=== PATIENT | male | born 1940 | race Caucasian/White ===

== ENCOUNTER 2024-12-23 07:48 | Inpatient (IN) | payer MEDICARE, OTHER ==
[~2024-12-23] VITALS: Ht 177.8 cm; Wt 56.0 kg
[2024-12-23] VITALS (16 sets, daily range): BP systolic 94–172; BP diastolic 52–107; PULSE 78–93; RESP 15–26; TEMP 98.2–99.3; O2SAT 92–100
[~2024-12-23 07:48] MED LIST: ALLO-45 PO; BIMA2.5D4 OS; CARV12 PO; CHOL100018 PO; CLON0.1T2 PO; CYAN250010 PO; DORZ10DR10 OS; FENO48TA12 PO; FERR-72 PO; FISH1CAP27 PO; FLUNNS NASAL; FURO40TA6 PO; LEVO125 PO; LISI-894 PO; MULT-603 PO; NIFE60TA85 PO; NITR0.4T52 SL; RANI150T7 PO; ROSU10TA98 PO; SITA1TAB6 PO
[2024-12-23] MEDS: FUROSEMIDE 40 MG/4 ML VIAL IVP ONE (08:15)
[2024-12-23] MEDS: SODIUM CHLORIDE 0.9% 250 ML IV ONE (08:15)
[2024-12-23 08:26] LABS: PLATELET COUNT (AUTO) 288 K/uL (150-450); RED BLOOD CELL COUNT(AUTO) 2.78 MIL/uL (4.50-5.90); RED CELL DISTRIBUTION WIDTH 17.8 % (11.5-14.5); WHITE BLOOD COUNT (AUTO) 9.7 K/uL (4.5-11.0)
[2024-12-23 08:27] LABS: CALCIUM, TOTAL 8.0 mg/dL (8.8-10.5); CREATININE 3.71 mg/dL (0.60-1.30); GLOMERULAR FILTR. RATE CALC 16 mL/min (>60); GLUCOSE,RANDOM 164 mg/dL (70-110); SODIUM SERUM 136 mmol/L (136-145); UREA NITROGEN, BLOOD 43 mg/dL (7-18)
[2024-12-23 08:35] LABS: CREATINE KINASE, TOTAL ONLY 40.0 U/L (39-308)
[2024-12-23 08:39] LABS: LACTIC ACID 1.8 mmol/L (0.4-2.0)
[2024-12-23 08:40] LABS: TROPONIN I-HIGH SENSITIVITY 481 ng/L (<76)
[2024-12-23] MEDS: CefTRIAXone 1 GM/DEXTROSE 50 ML IV ONE (09:09)
[2024-12-23 09:40] LABS: TROPONIN I-HIGH SENSITIVITY 482 ng/L (<76)
[2024-12-23 09:48] LABS: APPEARANCE,URINE HAZY (CLEAR); GLUCOSE, URINE (UA) NEGATIVE (NEGATIVE); LEUKOCYTE ESTERASE ,URINE MODERATE (NEGATIVE); NITRATE,URINE NEGATIVE (NEGATIVE); OCCULT BLOOD,URINE SMALL (NEGATIVE); SPECIFIC GRAVITIY, URINE 1.015 (1.003-1.030)
[2024-12-23 09:58] LABS: SQUAMOUS EPITHELIAL CELL,UR Few /LPF (None Seen); YEAST,URINE Moderate /HPF (None Seen)
[2024-12-23] MEDS ORDERED: ONDANSETRON HCL 4 MG/2 ML VIAL IVP PRN (10:00)
[2024-12-23] MEDS ORDERED: DEXTROSE 50%-WATER 25 GM/50 ML SYRINGE IVP PRN (10:00)
[2024-12-23] MEDS ORDERED: BISACODYL 10 MG RECTAL RECTAL SUPPOSITORY PR PRN (10:00)
[2024-12-23 10:12] LABS: ABG BASE EXCESS 2.8 mmol/L (-2.0-3.0); ABG CARBOXYHEMOGLOBIN 0.4 % (0.5-1.5); ABG HCO3 26.6 mmol/L (21.0-28.0); ABG METHEMOGLOBIN 1.2 % (0.0-1.5); ABG OXYGEN CONTENT 12.3 mL/dL (15.0-23.0); ABG OXYGEN SATURATION 99.0 % (94.0-98.0); ABG OXYHEMOGLOBIN 97.4 % (94.0-98.0); ABG PCO2 47 mmHg (32.0-48.0); ABG PH 7.390 (7.350-7.450); ABG TOTAL HEMOGLOBIN 8.8 G/dL (13.5-17.5); FRACTIONATED INSPIRED OXYGEN 50.0 % (21-100.0); PO2, ARTERIAL BG 128.1 mmHg (83.0-108.0); SITE, BLOOD GAS RT RADIAL; SOURCE, BLOOD GAS ARTERIAL; TEMPERATURE, FAHRENHEIT, BG 98.7 FAHREN (96.0-98.6)
[2024-12-23 10:13] LABS: ABG A-A DIFF O2 175.5 mmHg (10-20.0); ALLEN TEST, BLOOD GAS Positive; O2 DEVICE,BLOOD GAS BIPAP (ROOM AIR); PATIENT RATE, BG 19.0 min.; PRESSURE SUPPORT, BG 7 cm H2O; SET RATE, BG 18.0 min.; SPONTANEOUS VT, BG 330 ml
[2024-12-23 10:14] LABS: INSPIRATORY TIME, BG 0.9 SEC
[2024-12-23] MEDS: VANCOMYCIN 1.5 GM/WATER(PEG) 300 ML IV ONE (10:33)
[2024-12-23] MEDS ORDERED: HEPARIN SODIUM,PORCINE 1,000 UNITS/ML VIAL ONE (12:00)
[2024-12-23] MEDS: HEPARIN SODIUM,PORCINE 5,000 UNITS/ML VIAL SQ SCH (16:00)
[2024-12-23] MEDS: HEPARIN SODIUM,PORCINE 1,000 UNITS/ML VIAL IVCATH ONE ×2 (16:22)
[2024-12-23] MEDS: PIPERACILLIN SODIUM/TAZOBACTAM 2.25 GM in DEXTROSE 5%-WATER 50 ML IV SCH (16:34)
[2024-12-23] MEDS ORDERED: SODIUM CHLORIDE 0.9% 250 ML IV ONE (21:28)
[2024-12-23] MEDS: DOCUSATE SODIUM 100 MG CAPSULE PO SCH (21:41)
[2024-12-23] MEDS: MELATONIN 3 MG TABLET PO PRN (21:41)
[2024-12-23] MEDS: CHLORHEXIDINE GLUCONATE 2% TOWELETTE [2'S/6'S] TP SCH (23:05)
[2024-12-23] MEDS: ACETAMINOPHEN 325 MG TABLET PO PRN (23:20)
[2024-12-24] VITALS (7 sets, daily range): BP systolic 112–129; BP diastolic 47–89; PULSE 76–80; RESP 18–20; TEMP 97.9–99.3; O2SAT 98–100
[2024-12-24 04:16] LABS: GLUCOMETER DEV NAME(LOC) 5S.1E; GLUCOSE,POINT OF CARE 90 MG/DL (70-110)
[2024-12-24 07:12] LABS: PLATELET COUNT (AUTO) 265 K/uL (150-450); RED BLOOD CELL COUNT(AUTO) 2.76 MIL/uL (4.50-5.90); RED CELL DISTRIBUTION WIDTH 18.4 % (11.5-14.5); WHITE BLOOD COUNT (AUTO) 7.6 K/uL (4.5-11.0)
[2024-12-24 07:27] LABS: CALCIUM, TOTAL 8.5 mg/dL (8.8-10.5); CREATININE 2.93 mg/dL (0.60-1.30); GLOMERULAR FILTR. RATE CALC 21.0 mL/min (>60); GLUCOSE,RANDOM 76.0 mg/dL (70-110); SODIUM SERUM 140.0 mmol/L (136-145); UREA NITROGEN, BLOOD 30.0 mg/dL (7-18)
[2024-12-24 07:39] LABS: TROPONIN I-HIGH SENSITIVITY 507 ng/L (<76)
[2024-12-24] MEDS ORDERED: VANCOMYCIN 1GM/WATER(PEG/NADA) 200 ML IV PRN (08:30)
[2024-12-24] MEDS: FAMOTIDINE 20 MG TABLET PO SCH (08:44)
[2024-12-24 09:56] LABS: INFLUENZA A-RTPCR,COMBO NEGATIVE (NEGATIVE); INFLUENZA B-RTPCR,COMBO NEGATIVE (NEGATIVE); RESPIRATORY SYNCYTIAL VRS-PCR NEGATIVE (NEGATIVE); SARS COVID19 RTPCR, COMBO NEGATIVE (NEGATIVE)
[2024-12-24 10:21] LABS: GLUCOMETER DEV NAME(LOC) 5S.1E; GLUCOSE,POINT OF CARE 75 MG/DL (70-110)
[2024-12-24] MEDS: LEVOTHYROXINE SODIUM 125 MCG TABLET PO SCH (12:08)
[2024-12-24] MEDS: PIPERACILLIN SODIUM/TAZOBACTAM 2.25 GM in DEXTROSE 5%-WATER 50 ML IV SCH (13:58)
[2024-12-24 14:11] LABS: GLUCOMETER DEV NAME(LOC) 5S.1E; GLUCOSE,POINT OF CARE 120 MG/DL (70-110)
[2024-12-24] MEDS: INSULIN LISPRO 100 UNITS/ML SQ PRN (21:38)
[2024-12-24] MEDS ORDERED: 0.9% SODIUM CHLORIDE 5 ML NEB SOLUTION NEB ONE (22:42)
[2024-12-24 23:01] LABS: GLUCOMETER DEV NAME(LOC) 5N.2C; GLUCOSE,POINT OF CARE 126 MG/DL (70-110)
[2024-12-24 23:01] LABS: GLUCOMETER DEV NAME(LOC) 5N.2C; GLUCOSE,POINT OF CARE 168 MG/DL (70-110)
[2024-12-25 03:47] VITALS: BP 103/52; PULSE 78; RESP 18; TEMP 98.2; O2SAT 100
[2024-12-25 06:46] LABS: PLATELET COUNT (AUTO) 300 K/uL (150-450); RED BLOOD CELL COUNT(AUTO) 2.49 MIL/uL (4.50-5.90); RED CELL DISTRIBUTION WIDTH 18.1 % (11.5-14.5); WHITE BLOOD COUNT (AUTO) 5.5 K/uL (4.5-11.0)
[2024-12-25 06:57] LABS: CALCIUM, TOTAL 8.1 mg/dL (8.8-10.5); CREATININE 3.66 mg/dL (0.60-1.30); GLOMERULAR FILTR. RATE CALC 16.0 mL/min (>60); GLUCOSE,RANDOM 92.0 mg/dL (70-110); SODIUM SERUM 141.0 mmol/L (136-145); UREA NITROGEN, BLOOD 42.0 mg/dL (7-18)
[2024-12-25 07:32] VITALS: BP 118/69; PULSE 79; RESP 18; TEMP 98.2; O2SAT 100
[2024-12-25] MEDS: VANCOMYCIN 1.25 GM/WATER(PEG) 250 ML IV ONE (08:47)
[2024-12-25 09:11] LABS: GLUCOMETER DEV NAME(LOC) 5S.1E; GLUCOSE,POINT OF CARE 86 MG/DL (70-110)
[2024-12-25 11:32] VITALS: BP 112/65; PULSE 80; RESP 18; TEMP 97.9; O2SAT 99
[2024-12-25] MEDS: PIPERACILLIN SODIUM/TAZOBACTAM 2.25 GM in DEXTROSE 5%-WATER 50 ML IV SCH (11:57)
[2024-12-25 12:56] LABS: GLUCOMETER DEV NAME(LOC) 5S.1E; GLUCOSE,POINT OF CARE 130 MG/DL (70-110)
[2024-12-25 15:26] VITALS: BP 121/62; PULSE 67; RESP 18; TEMP 97.9; O2SAT 98
[2024-12-25 20:18] VITALS: BP 128/65; PULSE 79; RESP 19; TEMP 98.4; O2SAT 100
[2024-12-25] MEDS ORDERED: SODIUM CHLORIDE 0.9% 250 ML IV ONE (20:27)
[2024-12-25 21:26] LABS: GLUCOMETER DEV NAME(LOC) 5S.1E; GLUCOSE,POINT OF CARE 110 MG/DL (70-110)
[2024-12-25 21:26] LABS: GLUCOMETER DEV NAME(LOC) 5N.2C; GLUCOSE,POINT OF CARE 139 MG/DL (70-110)
[2024-12-25 23:28] VITALS: BP 111/69; PULSE 82; RESP 18; TEMP 98.8; O2SAT 100
[2024-12-26] VITALS (14 sets, daily range): BP systolic 121–158; BP diastolic 1–83; PULSE 60–89; RESP 18–19; TEMP 97.9–98.4; O2SAT 96–100
[2024-12-26 06:37] LABS: PLATELET COUNT (AUTO) 317 K/uL (150-450); RED BLOOD CELL COUNT(AUTO) 2.52 MIL/uL (4.50-5.90); RED CELL DISTRIBUTION WIDTH 17.7 % (11.5-14.5); WHITE BLOOD COUNT (AUTO) 5.2 K/uL (4.5-11.0)
[2024-12-26 06:50] LABS: CREATININE 4.0 mg/dL (0.60-1.30); GLUCOSE,RANDOM 124.0 mg/dL (70-110); SODIUM SERUM 140.0 mmol/L (136-145); UREA NITROGEN, BLOOD 53.0 mg/dL (7-18)
[2024-12-26 06:51] LABS: CALCIUM, TOTAL 8.1 mg/dL (8.8-10.5); GLOMERULAR FILTR. RATE CALC 14.0 mL/min (>60)
[2024-12-26] MEDS: EPOETIN ALFA 10,000 UNITS/ML VIAL SQ SCH (10:01)
[2024-12-26] MEDS ORDERED: SODIUM CHLORIDE 0.9% 1,000 ML ONE (10:43)
[2024-12-26] MEDS ORDERED: HEPARIN SODIUM,PORCINE 1,000 UNITS/ML VIAL ONE (11:04)
[2024-12-26] MEDS: HEPARIN SODIUM,PORCINE 1,000 UNITS/ML VIAL IVCATH ONE ×2 (16:21)
[2024-12-27] VITALS (13 sets, daily range): BP systolic 113–140; BP diastolic 8–75; PULSE 60–92; RESP 18; TEMP 97.7–98.8; O2SAT 98–100
[2024-12-27 01:07] LABS: HEPATITIS C AB (EIA) Non Reactive (Non Reactive)
[2024-12-27 04:11] LABS: GLUCOMETER DEV NAME(LOC) 5S.1E; GLUCOSE,POINT OF CARE 100 MG/DL (70-110)
[2024-12-27 04:11] LABS: GLUCOMETER DEV NAME(LOC) 5S.1E; GLUCOSE,POINT OF CARE 128 MG/DL (70-110)
[2024-12-27 04:12] LABS: GLUCOMETER DEV NAME(LOC) 5N.2C; GLUCOSE,POINT OF CARE 118 MG/DL (70-110)
[2024-12-27 04:12] LABS: GLUCOMETER DEV NAME(LOC) 5S.1E; GLUCOSE,POINT OF CARE 83 MG/DL (70-110)
[2024-12-27] MEDS ORDERED: SODIUM CHLORIDE 0.9% 2,000 ML ONE (06:47)
[2024-12-27 06:59] LABS: CALCIUM, TOTAL 7.8 mg/dL (8.8-10.5); CREATININE 2.64 mg/dL (0.60-1.30); GLOMERULAR FILTR. RATE CALC 23.0 mL/min (>60); GLUCOSE,RANDOM 88.0 mg/dL (70-110); SODIUM SERUM 138.0 mmol/L (136-145); UREA NITROGEN, BLOOD 31.0 mg/dL (7-18)
[2024-12-27 11:54] LABS: SPECIMENTYPE,BODY FLUID PLV
[2024-12-27] MEDS ORDERED: HEPARIN SODIUM,PORCINE 1,000 UNITS/ML VIAL ONE (12:00)
[2024-12-27] MEDS: HEPARIN SODIUM,PORCINE 1,000 UNITS/ML VIAL IVCATH ONE ×2 (12:08)
[2024-12-27 12:31] LABS: GLUCOMETER DEV NAME(LOC) 5S.1E; GLUCOSE,POINT OF CARE 93 MG/DL (70-110)
[2024-12-27 12:31] LABS: GLUCOMETER DEV NAME(LOC) 5S.1E; GLUCOSE,POINT OF CARE 99 MG/DL (70-110)
[2024-12-27] MEDS: VANCOMYCIN 1GM/WATER(PEG/NADA) 200 ML IV ONE (15:40)
[2024-12-27 17:34] LABS: APPEARANCE,SPUN,BODY FLUID CLEAR (CLEAR); APPEARANCE,UNSPUN,BODY FLUID TURBID (CLEAR); BODY FLUID RBC 1414.0 /cu. mm.; COLOR,BODY FLUID DARK YELLOW (LT YELLOW); LYMPHOCYTES,BODY FLUID 85 %; NEUTROPHILS,BODY FLUID 7 %; TOTAL VOLUME,BODY FLUID 750 mL
[2024-12-27 17:35] LABS: BASOPHILS,BODY FLUID 0 %; EOSINOPHILS,BF (ANAL) 0 %; MONOCYTES,BODY FLUID 10 %
[2024-12-27 17:38] LABS: PH, BODY FLUID 9.0; WBC, BODY FLUID 103 /cu. mm.
[2024-12-27 17:43] LABS: OTHER CELLS,BODY FLUID MESOTHELIALS 8
[2024-12-28 00:15] VITALS: BP 127/55; PULSE 79; RESP 18; TEMP 98.1; O2SAT 100
[2024-12-28 04:19] VITALS: BP 128/68; PULSE 77; RESP 17; TEMP 98.1; O2SAT 99
[2024-12-28 07:47] VITALS: BP 132/67; PULSE 82; RESP 18; TEMP 98; O2SAT 98
[2024-12-28 11:28] VITALS: BP 126/64; PULSE 74; RESP 18; TEMP 98; O2SAT 97
[2024-12-28 12:26] LABS: GLUCOMETER DEV NAME(LOC) 5N.2C; GLUCOSE,POINT OF CARE 107 MG/DL (70-110)
[2024-12-28 12:26] LABS: GLUCOMETER DEV NAME(LOC) 5N.2C; GLUCOSE,POINT OF CARE 103 MG/DL (70-110)
[2024-12-28 12:26] LABS: GLUCOMETER DEV NAME(LOC) 5N.2C; GLUCOSE,POINT OF CARE 121 MG/DL (70-110)
[2024-12-28 12:26] LABS: GLUCOMETER DEV NAME(LOC) 5N.2C; GLUCOSE,POINT OF CARE 105 MG/DL (70-110)
[2024-12-28] MEDS ORDERED: ALLO-97 PO (13:38)
[2024-12-28] MEDS ORDERED: AMLO-257 PO (13:40)
[2024-12-28] MEDS ORDERED: DORZ10DR10 OS (13:42)
[2024-12-28] MEDS ORDERED: DOCU-385 PO (13:43)
[2024-12-28] MEDS ORDERED: BISA-151 PO (13:45)
[2024-12-28] MEDS ORDERED: APIX2.5T PO (13:47)
[2024-12-28] MEDS ORDERED: FINE10TA PO (13:49)
[2024-12-28] MEDS ORDERED: IPRA4AER IH (13:51)
[2024-12-28] MEDS ORDERED: MELA5TAB40 PO (13:53)
[2024-12-28] MEDS ORDERED: FOLI1TAB85 PO (13:54)
[2024-12-28] MEDS ORDERED: OMEP-148 PO (13:58)
[2024-12-28] MEDS ORDERED: VIT1CAPS47 PO (13:59)
[2024-12-28] MEDS ORDERED: ACET650S24 PR (14:04)
[2024-12-28 14:07] LABS: GLUCOSE, BODY FLUID,REF 108.0 mg/dL; LDH,BODY FLUID,REF 93.0 IU/L; TOTAL PROTEIN,BODY FLUID,REF 2.5 g/dL
[2024-12-28] MEDS ORDERED: CHOL25TA4 PO (14:13)
[2024-12-28] MEDS ORDERED: FLUC100T68 PO (14:15)
[2024-12-28] MEDS ORDERED: ACET-784 PO (14:21)
[2024-12-28] MEDS ORDERED: NYST15PO3 TP (14:25)
[2024-12-28] MEDS ORDERED: NYST30CR9 TP (14:27)
[2024-12-28] MEDS ORDERED: BISA10SU11 PR (14:53)
[2024-12-28] MEDS ORDERED: FURO20TA5 PO (14:59)
[2024-12-28 15:50] VITALS: BP 106/50; PULSE 80; RESP 18; TEMP 97.7; O2SAT 96
== END 2024-12-28 17:15 | DRG 193 ==
LOC: EMS 07:48 → EDH 09:49 → 5S 18:10
PROVIDERS: ADMIT Internal Medicine; ATTEND Internal Medicine
PROC: 5A09357 Assistance with Respiratory Ventilation, Less than 24 Consecutive Hours, Continuous Positive Airway Pressure (ICD-10-PCS; principal; 2024-12-23)
PROC: 5A1D70Z Performance of Urinary Filtration, Intermittent, Less than 6 Hours Per Day (ICD-10-PCS; 2024-12-23)
PROC: 5A1D70Z Performance of Urinary Filtration, Intermittent, Less than 6 Hours Per Day (ICD-10-PCS; 2024-12-26)
PROC: 5A1D70Z Performance of Urinary Filtration, Intermittent, Less than 6 Hours Per Day (ICD-10-PCS; 2024-12-27)
PROC: 0W993ZZ Drainage of Right Pleural Cavity, Percutaneous Approach (ICD-10-PCS; 2024-12-27)
DX: J18.9 Pneumonia, unspecified organism (principal); G92.8 Other toxic encephalopathy; J96.01 Acute respiratory failure with hypoxia; N17.0 Acute kidney failure with tubular necrosis; N18.6 End stage renal disease; R53.2 Functional quadriplegia; I50.23 Acute on chronic systolic (congestive) heart failure; I13.2 Hypertensive heart and chronic kidney disease with heart failure and with stage 5 chronic kidney disease, or end stage renal disease; I47.20 Ventricular tachycardia, unspecified; N13.30 Unspecified hydronephrosis; I31.39 Other pericardial effusion (noninflammatory); I42.9 Cardiomyopathy, unspecified; D63.1 Anemia in chronic kidney disease; E03.9 Hypothyroidism, unspecified; E11.22 Type 2 diabetes mellitus with diabetic chronic kidney disease; I25.10 Atherosclerotic heart disease of native coronary artery without angina pectoris; Z20.822 Contact with and (suspected) exposure to COVID-19; Z95.0 Presence of cardiac pacemaker; Z79.84 Long term (current) use of oral hypoglycemic drugs; Z79.899 Other long term (current) drug therapy; Z85.46 Personal history of malignant neoplasm of prostate; Z99.2 Dependence on renal dialysis
CPT/HCPCS: 32555; 51702; 71045; 71250; 72192; 74150; 76770; 76942; 80048; 80202; 81001; 82465; 82550; 82805; 82945; 82962; 83605; 83615; 83735; 83880; 83986; 84145; 84157; 84439; 84443; 84460; 84484; 85025; 85610; 85730; 86707; 86709; 86803; 87015; 87040; 87075; 87081; 87086; 87101; 87205; 87206; 87340; 87350; 87517; 87637; 88108; 88305; 89051; 90935; 92610; 93005; 93306; 93970; 94660; 96361; 96365; 96375; 97163; 97167; 97530; 97535; 99285; G0378; J0696; J0885; J1644; J1938; J2543; J7030; J7050; J7060; 36415-L1; 36415-TC; 87070

== ENCOUNTER 2025-02-01 05:05 | Inpatient (IN) | payer MEDICARE, OTHER ==
[~2025-02-01] VITALS: Ht 177.8 cm; Wt 96.0 kg
[2025-02-01] VITALS (19 sets, daily range): BP systolic 83–113; BP diastolic 42–66; PULSE 72–117; RESP 10–28; TEMP 95.6–98.8; O2SAT 96–100
[~2025-02-01 05:05] MED LIST changes: +ACET-784 PO; -ALLO-45 PO; +ALLO-97 PO; +AMLO-257 PO; +APIX2.5T PO; +BISA10SU11 PR; -CARV12 PO; -CHOL100018 PO; +CHOL25TA4 PO; -CLON0.1T2 PO; -CYAN250010 PO; +DOCU-385 PO; +ETHY1MED2 NASAL; -FENO48TA12 PO; -FERR-72 PO; +FINE10TA PO; -FISH1CAP27 PO; +FLUN25H NASAL; -FLUNNS NASAL; +FOLI0.8T54 PO; +FURO20TA5 PO; -FURO40TA6 PO; +IPRA3AMP24 NEB; -LISI-894 PO; +MELA5TAB40 PO; +METO25XL PO; -MULT-603 PO; -NIFE60TA85 PO; -NITR0.4T52 SL; +NYST30CR9 TP; +OMEP-148 PO; -RANI150T7 PO; -SITA1TAB6 PO; +VIT1CAPS47 PO; +XALA2.5OS OU; +[UNRECOGNIZED DRUG - CODE] IV; +[UNRECOGNIZED DRUG - CODE] SQ
[2025-02-01 05:40] LABS: GLUCOMETER DEV NAME(LOC) ER.7; GLUCOSE,POINT OF CARE 154 MG/DL (70-110)
[2025-02-01 05:44] LABS: PLATELET COUNT (AUTO) 320 K/uL (150-450); RED BLOOD CELL COUNT(AUTO) 3.62 MIL/uL (4.50-5.90); RED CELL DISTRIBUTION WIDTH 17.8 % (11.5-14.5); WHITE BLOOD COUNT (AUTO) 12.3 K/uL (4.5-11.0)
[2025-02-01] MEDS: NOREPINEPHRINE 8 MG/0.9 % NACL 250 ML IV PRN (05:48)
[2025-02-01] MEDS: PROPOFOL 1000 MG/ISO-OSM 100 ML IV PRN ×2 (05:48→18:27)
[2025-02-01] MEDS: FentaNYL CIT 1000MCG/0.9% NACL 100 ML IV PRN ×2 (05:49→23:50)
[2025-02-01 05:51] LABS: CALCIUM, TOTAL 8.6 mg/dL (8.8-10.5); CREATININE 2.71 mg/dL (0.60-1.30); GLOMERULAR FILTR. RATE CALC 23 mL/min (>60); GLUCOSE,RANDOM 170 mg/dL (70-110); SODIUM SERUM 135 mmol/L (136-145); UREA NITROGEN, BLOOD 26 mg/dL (7-18)
[2025-02-01] MEDS ORDERED: CALCIUM CHLORIDE 100 MG/ML 10 ML SYRINGE IVP ONE (05:51)
[2025-02-01] MEDS ORDERED: SUCCINYLCHOLINE CHLORIDE 20 MG/ML 10 ML VIAL ONE (05:52)
[2025-02-01 06:01] LABS: LACTIC ACID 0.9 mmol/L (0.4-2.0)
[2025-02-01 06:03] LABS: TROPONIN I-HIGH SENSITIVITY 408 ng/L (<76)
[2025-02-01 06:20] LABS: APPEARANCE,URINE TURBID (CLEAR); GLUCOSE, URINE (UA) NEGATIVE (NEGATIVE); LEUKOCYTE ESTERASE ,URINE LARGE (NEGATIVE); NITRATE,URINE NEGATIVE (NEGATIVE); OCCULT BLOOD,URINE SMALL (NEGATIVE); SPECIFIC GRAVITIY, URINE 1.010 (1.003-1.030)
[2025-02-01 06:47] LABS: SULFOSALICYLIC ACID,URINE 2+ (Negative)
[2025-02-01 07:20] LABS: ABG A-A DIFF O2 315.5 mmHg (10-20.0); ABG BASE EXCESS 2.7 mmol/L (-2.0-3.0); ABG CARBOXYHEMOGLOBIN 1.0 % (0.5-1.5); ABG HCO3 26.6 mmol/L (21.0-28.0); ABG METHEMOGLOBIN 0.9 % (0.0-1.5); ABG OXYGEN CONTENT 16.8 mL/dL (15.0-23.0); ABG OXYGEN SATURATION 99.9 % (94.0-98.0); ABG OXYHEMOGLOBIN 98.0 % (94.0-98.0); ABG PCO2 42 mmHg (32.0-48.0); ABG PH 7.429 (7.350-7.450); ABG TOTAL HEMOGLOBIN 11.9 G/dL (13.5-17.5); ALLEN TEST, BLOOD GAS Positive; FRACTIONATED INSPIRED OXYGEN 75.0 % (21-100.0); O2 DEVICE,BLOOD GAS VENTILATOR (ROOM AIR); PATIENT RATE, BG 20.0 min.; PEEP,BG 5 cm H2O; PO2, ARTERIAL BG 177.6 mmHg (83.0-108.0); SET RATE, BG 20.0 min.; SITE, BLOOD GAS LFT RADIAL; SOURCE, BLOOD GAS ARTERIAL; TEMPERATURE, FAHRENHEIT, BG 96.1 FAHREN (96.0-98.6); VT, ABG 500 ml
[2025-02-01] MEDS ORDERED: MISC MED-CONVERTED FROM AMBULATORY (Ipratropium/Albuterol Sulfate (Duoneb 2.5-0.5 Mg/3 Ml NEB PRN (07:45)
[2025-02-01] MEDS ORDERED: 0.9% SODIUM CHLORIDE 10 ML SYRINGE IVP PRN (07:45)
[2025-02-01] MEDS ORDERED: BISACODYL 10 MG RECTAL RECTAL SUPPOSITORY PR PRN (07:45)
[2025-02-01] MEDS ORDERED: IPRATROPIUM BROMIDE 0.5 MG/2.5 ML NEB SOLUTION NEB PRN (08:00)
[2025-02-01] MEDS ORDERED: ALBUTEROL SULFATE 2.5 MG/0.5 ML NEB SOLUTION NEB PRN (08:00)
[2025-02-01 08:37] LABS: CALCIUM, TOTAL 9.5 mg/dL (8.8-10.5); CREATININE 2.76 mg/dL (0.60-1.30); GLOMERULAR FILTR. RATE CALC 22.0 mL/min (>60); GLUCOSE,RANDOM 156.0 mg/dL (70-110); SODIUM SERUM 135.0 mmol/L (136-145); UREA NITROGEN, BLOOD 27.0 mg/dL (7-18)
[2025-02-01] MEDS: CefTRIAXone 1 GM/DEXTROSE 50 ML IV SCH (08:37)
[2025-02-01 08:39] LABS: TROPONIN I-HIGH SENSITIVITY 465 ng/L (<76)
[2025-02-01] MEDS: SODIUM CHLORIDE 0.9% 250 ML IV ONE (08:41)
[2025-02-01 08:42] LABS: ASPARTATE AMINOTRANSFERASE 24.0 U/L (15-37); LACTATE DEHYDROGENASE 237.0 U/L (85-227); TOTAL PROTEIN, SERUM 7.4 g/dL (6.4-8.2)
[2025-02-01] MEDS: NYSTATIN 30 GM CREAM TP SCH (09:00)
[2025-02-01] MEDS: DORZOLAMIDE/TIMOLOL 2-0.5% [22.3-6.8MG/ML] 10 ML OPHTHALMIC SOLUTION OS SCH (09:00)
[2025-02-01] MEDS: OMEPRAZOLE 20 MG CAPSULE PO SCH (09:44)
[2025-02-01] MEDS: EPOETIN ALFA 10,000 UNITS/ML VIAL SQ SCH (09:44)
[2025-02-01] MEDS: ASPIRIN 81 MG CHEWABLE TABLET PO ONE (09:44)
[2025-02-01] MEDS: METOPROLOL SUCCINATE 25 MG ER TABLET PO SCH (09:44)
[2025-02-01] MEDS: DOXYCYCLINE HYCLATE 100 MG in DEXTROSE 5%-WATER 100 ML IV SCH (09:46)
[2025-02-01] MEDS ORDERED: ETOMIDATE 2 MG/ML 10 ML VIAL ONE (12:00)
[2025-02-01] MEDS ORDERED: HEPARIN SODIUM,PORCINE 1,000 UNITS/ML VIAL ONE (12:00)
[2025-02-01] MEDS ORDERED: LIDOCAINE 2% 6 ML JELLY ONE (12:00)
[2025-02-01 12:09] LABS: TROPONIN I-HIGH SENSITIVITY 435 ng/L (<76)
[2025-02-01] MEDS: PIPERACILLIN SODIUM/TAZOBACTAM 2.25 GM in DEXTROSE 5%-WATER 50 ML IV SCH (13:13)
[2025-02-01] MEDS ORDERED: SODIUM CHLORIDE 0.9% 250 ML IV ONE (13:14)
[2025-02-01 14:15] LABS: GLUCOMETER DEV NAME(LOC) ICU.S7; GLUCOSE,POINT OF CARE 131 MG/DL (70-110)
[2025-02-01 18:16] LABS: GLUCOMETER DEV NAME(LOC) ICU.S7; GLUCOSE,POINT OF CARE 96 MG/DL (70-110)
[2025-02-01 19:02] LABS: TROPONIN I-HIGH SENSITIVITY 414 ng/L (<76)
[2025-02-01] MEDS: BIMATOPROST 0.01% 2.5 ML OPHTHALMIC SOLUTION OS SCH (20:42)
[2025-02-01] MEDS: ROSUVASTATIN CALCIUM 10 MG TABLET PO SCH (21:00)
[2025-02-01] MEDS: ETHYL ALCOHOL 62% ANTISEPTIC NASAL SANITIZER 0.6 ML AMPUL NASAL SCH (21:58)
[2025-02-01] MEDS: CHLORHEXIDINE GLUCONATE 2% TOWELETTE [2'S/6'S] TP SCH (22:38)
[2025-02-02] VITALS (25 sets, daily range): BP systolic 107–147; BP diastolic 39–102; PULSE 64–91; RESP 20–27; TEMP 99.1–100; O2SAT 94–100
[2025-02-02 01:00] LABS: GLUCOMETER DEV NAME(LOC) ICU.S7; GLUCOSE,POINT OF CARE 86 MG/DL (70-110)
[2025-02-02] MEDS: LEVOTHYROXINE SODIUM 125 MCG TABLET PO SCH (05:41)
[2025-02-02 06:16] LABS: PLATELET COUNT (AUTO) 278 K/uL (150-450); RED BLOOD CELL COUNT(AUTO) 3.77 MIL/uL (4.50-5.90); RED CELL DISTRIBUTION WIDTH 18.4 % (11.5-14.5); WHITE BLOOD COUNT (AUTO) 12.7 K/uL (4.5-11.0)
[2025-02-02 06:28] LABS: CALCIUM, TOTAL 8.5 mg/dL (8.8-10.5); CREATININE 2.29 mg/dL (0.60-1.30); GLOMERULAR FILTR. RATE CALC 27.0 mL/min (>60); GLUCOSE,RANDOM 86.0 mg/dL (70-110); SODIUM SERUM 130.0 mmol/L (136-145); UREA NITROGEN, BLOOD 19.0 mg/dL (7-18)
[2025-02-02] MEDS: DEXTROSE 50%-WATER 25 GM/50 ML SYRINGE IVP PRN (06:41)
[2025-02-02 06:45] LABS: PHOSPHORUS 3.2 mg/dL (2.5-4.9)
[2025-02-02] MEDS ORDERED: ONDANSETRON HCL 4 MG/2 ML VIAL IVP PRN (07:00)
[2025-02-02] MEDS ORDERED: VANCOMYCIN HCL 1 GM/D5% WATER 200 ML IV PRN (08:15)
[2025-02-02] MEDS ORDERED: HEPARIN SODIUM,PORCINE 1,000 UNITS/ML 10 ML VIAL ONE (09:05)
[2025-02-02] MEDS: METOPROLOL TARTRATE 25 MG TABLET GT SCH (09:30)
[2025-02-02] MEDS: HEPARIN SODIUM,PORCINE 5,000 UNITS/ML VIAL SQ SCH (09:39)
[2025-02-02] MEDS: PANTOPRAZOLE SODIUM 40 MG/VIAL IVP SCH (09:39)
[2025-02-02] MEDS: VANCOMYCIN 1.25 GM/WATER(PEG) 250 ML IV ONE (09:39)
[2025-02-02] MEDS: DOCUSATE SODIUM 100 MG CAPSULE PO SCH (09:40)
[2025-02-02] MEDS: ASPIRIN 81 MG CHEWABLE TABLET PO SCH (09:46)
[2025-02-02 10:22] LABS: ABG BASE EXCESS 1.1 mmol/L (-2.0-3.0); ABG CARBOXYHEMOGLOBIN 0.6 % (0.5-1.5); ABG HCO3 25.7 mmol/L (21.0-28.0); ABG METHEMOGLOBIN 0.1 % (0.0-1.5); ABG OXYGEN CONTENT 16.1 mL/dL (15.0-23.0); ABG OXYGEN SATURATION 98.8 % (94.0-98.0); ABG OXYHEMOGLOBIN 98.1 % (94.0-98.0); ABG PCO2 35 mmHg (32.0-48.0); ABG PH 7.464 (7.350-7.450); ABG TOTAL HEMOGLOBIN 11.5 G/dL (13.5-17.5); ALLEN TEST, BLOOD GAS Positive; FRACTIONATED INSPIRED OXYGEN 40.0 % (21-100.0); PO2, ARTERIAL BG 121.4 mmHg (83.0-108.0); SITE, BLOOD GAS LFT RADIAL; SOURCE, BLOOD GAS ARTERIAL; TEMPERATURE, FAHRENHEIT, BG 98.9 FAHREN (96.0-98.6)
[2025-02-02 10:23] LABS: ABG A-A DIFF O2 122.9 mmHg (10-20.0); O2 DEVICE,BLOOD GAS VENTILATOR (ROOM AIR); PATIENT RATE, BG 21.0 min.; PEEP,BG 5 cm H2O; SET RATE, BG 20.0 min.; SPONTANEOUS VT, BG 525 ml; VT, ABG 500 ml
[2025-02-02] MEDS ORDERED: HEPARIN SODIUM,PORCINE 1,000 UNITS/ML VIAL IVP ONE (10:55)
[2025-02-02 13:10] LABS: GLUCOMETER DEV NAME(LOC) ICUN.7; GLUCOSE,POINT OF CARE 76 MG/DL (70-110)
[2025-02-02 13:10] LABS: GLUCOMETER DEV NAME(LOC) ICUN.7; GLUCOSE,POINT OF CARE 70 MG/DL (70-110)
[2025-02-02 13:15] LABS: GLUCOMETER DEV NAME(LOC) ICU.S7; GLUCOSE,POINT OF CARE 107 MG/DL (70-110)
[2025-02-02] MEDS: ACETAMINOPHEN 325 MG TABLET PO PRN (17:29)
[2025-02-02] MEDS: NOREPINEPHRINE 8 MG/0.9 % NACL 250 ML IV PRN (17:29)
[2025-02-02] MEDS: *CLINICAL-CEFEPIME DOSING CLINICAL ONE (17:48)
[2025-02-02] MEDS: HEPARIN SODIUM,PORCINE 1,000 UNITS/ML VIAL IVCATH ONE ×2 (20:34→20:35)
[2025-02-02] MEDS: CEFEPIME HCL 1 GM in DEXTROSE 5%-WATER 50 ML IV SCH (21:18)
[2025-02-02] MEDS: DOCUSATE SODIUM 100 MG/10 ML LIQUID UDCUP GT SCH (21:18)
[2025-02-02] MEDS ORDERED: CHLORHEXIDINE GLUCONATE 2% TOWELETTE [2'S/6'S] TP SCH (22:00)
[2025-02-03] VITALS (22 sets, daily range): BP systolic 64–160; BP diastolic 44–76; PULSE 62–95; RESP 13–39; TEMP 98.2–100.3; O2SAT 96–100
[2025-02-03 04:46] LABS: GLUCOMETER DEV NAME(LOC) ICUN.7; GLUCOSE,POINT OF CARE 78 MG/DL (70-110)
[2025-02-03 04:46] LABS: GLUCOMETER DEV NAME(LOC) ICU.S7; GLUCOSE,POINT OF CARE 98 MG/DL (70-110)
[2025-02-03 06:26] LABS: PLATELET COUNT (AUTO) 220 K/uL (150-450); RED BLOOD CELL COUNT(AUTO) 3.50 MIL/uL (4.50-5.90); RED CELL DISTRIBUTION WIDTH 18.8 % (11.5-14.5); WHITE BLOOD COUNT (AUTO) 9.6 K/uL (4.5-11.0)
[2025-02-03 07:37] LABS: CALCIUM, TOTAL 8.9 mg/dL (8.8-10.5); CREATININE 1.87 mg/dL (0.60-1.30); GLOMERULAR FILTR. RATE CALC 35.0 mL/min (>60); GLUCOSE,RANDOM 84.0 mg/dL (70-110); SODIUM SERUM 138.0 mmol/L (136-145); UREA NITROGEN, BLOOD 12.0 mg/dL (7-18)
[2025-02-03 08:56] LABS: GLUCOMETER DEV NAME(LOC) ICU.S7; GLUCOSE,POINT OF CARE 68 MG/DL (70-110)
[2025-02-03 08:56] LABS: GLUCOMETER DEV NAME(LOC) ICUN.7; GLUCOSE,POINT OF CARE 83 MG/DL (70-110)
[2025-02-03 10:13] LABS: SPECIMENTYPE,BODY FLUID PLV
[2025-02-03 11:00] LABS: APPEARANCE,SPUN,BODY FLUID CLEAR (CLEAR); APPEARANCE,UNSPUN,BODY FLUID HAZY (CLEAR); BASOPHILS,BODY FLUID 0 % (1-5); BODY FLUID RBC 118.0 /cu. mm.; COLOR,BODY FLUID YELLOW (LT YELLOW); EOSINOPHILS,BF (ANAL) 0 %; LYMPHOCYTES,BODY FLUID 58 %; MONOCYTES,BODY FLUID 33 %; NEUTROPHILS,BODY FLUID 9 %; TOTAL VOLUME,BODY FLUID 900 mL; WBC, BODY FLUID 1075 /cu. mm.
[2025-02-03 11:01] LABS: PH, BODY FLUID 8.0 (6.8-7.6)
[2025-02-03 11:31] LABS: GLUCOMETER DEV NAME(LOC) ICUN.7; GLUCOSE,POINT OF CARE 92 MG/DL (70-110)
[2025-02-03] MEDS ORDERED: HEPARIN SODIUM,PORCINE 1,000 UNITS/ML VIAL IVP ONE (12:00)
[2025-02-03 15:10] LABS: ABG A-A DIFF O2 59.2 mmHg (10-20.0); ABG BASE EXCESS 2.3 mmol/L (-2.0-3.0); ABG CARBOXYHEMOGLOBIN 0.7 % (0.5-1.5); ABG HCO3 26.2 mmol/L (21.0-28.0); ABG METHEMOGLOBIN 0.1 % (0.0-1.5); ABG OXYGEN CONTENT 16.8 mL/dL (15.0-23.0); ABG OXYGEN SATURATION 97.8 % (94.0-98.0); ABG OXYHEMOGLOBIN 97.0 % (94.0-98.0); ABG PCO2 45 mmHg (32.0-48.0); ABG PH 7.398 (7.350-7.450); ABG TOTAL HEMOGLOBIN 12.2 G/dL (13.5-17.5); ALLEN TEST, BLOOD GAS Positive; FRACTIONATED INSPIRED OXYGEN 30.0 % (21-100.0); PO2, ARTERIAL BG 101.5 mmHg (83.0-108.0); SITE, BLOOD GAS LFT RADIAL; SOURCE, BLOOD GAS ARTERIAL; TEMPERATURE, FAHRENHEIT, BG 99.4 FAHREN (96.0-98.6)
[2025-02-03 15:11] LABS: O2 DEVICE,BLOOD GAS VENTILATOR (ROOM AIR); PATIENT RATE, BG 21.0 min.; PEEP,BG 0 cm H2O; PRESSURE SUPPORT, BG 8 cm H2O; SPONTANEOUS VT, BG 545 ml; VENT MODE, BG SPONTANEOUS (ROOM AIR)
[2025-02-03 17:40] LABS: GLUCOMETER DEV NAME(LOC) ICU.S7; GLUCOSE,POINT OF CARE 99 MG/DL (70-110)
[2025-02-03] MEDS ORDERED: SODIUM CHLORIDE 0.9% 250 ML IV ONE (21:00)
[2025-02-04] VITALS (11 sets, daily range): BP systolic 94–141; BP diastolic 50–74; PULSE 69–86; RESP 14–21; TEMP 99.5–100.4; O2SAT 98–100
[2025-02-04 00:26] LABS: GLUCOMETER DEV NAME(LOC) ICU.S7; GLUCOSE,POINT OF CARE 128 MG/DL (70-110)
[2025-02-04 05:59] LABS: PLATELET COUNT (AUTO) 229 K/uL (150-450); RED BLOOD CELL COUNT(AUTO) 3.49 MIL/uL (4.50-5.90); RED CELL DISTRIBUTION WIDTH 19.0 % (11.5-14.5); WHITE BLOOD COUNT (AUTO) 9.2 K/uL (4.5-11.0)
[2025-02-04 06:23] LABS: ASPARTATE AMINOTRANSFERASE 24.0 U/L (15-37); CALCIUM, TOTAL 8.2 mg/dL (8.8-10.5); CREATININE 1.84 mg/dL (0.60-1.30); GLOMERULAR FILTR. RATE CALC 35.0 mL/min (>60); GLUCOSE,RANDOM 130.0 mg/dL (70-110); PHOSPHORUS 1.7 mg/dL (2.5-4.9); SODIUM SERUM 136.0 mmol/L (136-145); TOTAL PROTEIN, SERUM 5.9 g/dL (6.4-8.2); UREA NITROGEN, BLOOD 11.0 mg/dL (7-18)
[2025-02-04 06:55] LABS: GLUCOMETER DEV NAME(LOC) ICU.S7; GLUCOSE,POINT OF CARE 86 MG/DL (70-110)
[2025-02-04 09:58] LABS: ABG A-A DIFF O2 56.0 mmHg (10-20.0); ABG BASE EXCESS 2.1 mmol/L (-2.0-3.0); ABG CARBOXYHEMOGLOBIN 0.7 % (0.5-1.5); ABG HCO3 26.2 mmol/L (21.0-28.0); ABG METHEMOGLOBIN 0.2 % (0.0-1.5); ABG OXYGEN CONTENT 15.5 mL/dL (15.0-23.0); ABG OXYGEN SATURATION 98.2 % (94.0-98.0); ABG OXYHEMOGLOBIN 97.3 % (94.0-98.0); ABG PCO2 44 mmHg (32.0-48.0); ABG PH 7.408 (7.350-7.450); ABG TOTAL HEMOGLOBIN 11.2 G/dL (13.5-17.5); ALLEN TEST, BLOOD GAS Positive; FRACTIONATED INSPIRED OXYGEN 30.0 % (21-100.0); PO2, ARTERIAL BG 106.7 mmHg (83.0-108.0); SITE, BLOOD GAS LFT RADIAL; SOURCE, BLOOD GAS ARTERIAL; TEMPERATURE, FAHRENHEIT, BG 99.4 FAHREN (96.0-98.6)
[2025-02-04 09:59] LABS: CPAP, BG 5 cm H2O; O2 DEVICE,BLOOD GAS VENTILATOR (ROOM AIR); PATIENT RATE, BG 17.0 min.; PRESSURE SUPPORT, BG 8 cm H2O; SPONTANEOUS VT, BG 513 ml; VENT MODE, BG CPAP (ROOM AIR)
[2025-02-04 13:08] LABS: GLUCOSE, BODY FLUID,REF 117 mg/dL; LDH,BODY FLUID,REF 100 IU/L
[2025-02-04] MEDS: VANCOMYCIN 1.25 GM/WATER(PEG) 250 ML IV ONE (13:43)
[2025-02-04] MEDS ORDERED: SODIUM CHLORIDE 0.9% 250 ML IV ONE (15:51)
[2025-02-04 18:30] LABS: GLUCOMETER DEV NAME(LOC) ICU.S7; GLUCOSE,POINT OF CARE 95 MG/DL (70-110)
[2025-02-04] MEDS: DOCUSATE SODIUM 100 MG CAPSULE PO SCH (20:30)
[2025-02-04] MEDS: MELATONIN 5 MG TABLET PO PRN (20:30)
[2025-02-05] VITALS (16 sets, daily range): BP systolic 105–137; BP diastolic 53–101; PULSE 69–87; RESP 15–20; TEMP 97.5–99.7; O2SAT 96–100
[2025-02-05 00:51] LABS: GLUCOMETER DEV NAME(LOC) ICUN.7; GLUCOSE,POINT OF CARE 110 MG/DL (70-110)
[2025-02-05 04:33] LABS: PLATELET COUNT (AUTO) 188 K/uL (150-450); RED BLOOD CELL COUNT(AUTO) 3.27 MIL/uL (4.50-5.90); RED CELL DISTRIBUTION WIDTH 18.5 % (11.5-14.5); WHITE BLOOD COUNT (AUTO) 8.0 K/uL (4.5-11.0)
[2025-02-05 04:38] LABS: CALCIUM, TOTAL 8.0 mg/dL (8.8-10.5); CREATININE 2.63 mg/dL (0.60-1.30); GLOMERULAR FILTR. RATE CALC 23.0 mL/min (>60); GLUCOSE,RANDOM 90.0 mg/dL (70-110); SODIUM SERUM 138.0 mmol/L (136-145); UREA NITROGEN, BLOOD 15.0 mg/dL (7-18)
[2025-02-05 04:52] LABS: PHOSPHORUS 2.8 mg/dL (2.5-4.9)
[2025-02-05 06:31] LABS: GLUCOMETER DEV NAME(LOC) ICUN.7; GLUCOSE,POINT OF CARE 76 MG/DL (70-110)
[2025-02-05 10:41] LABS: GLUCOMETER DEV NAME(LOC) ICU.S7; GLUCOSE,POINT OF CARE 81 MG/DL (70-110)
[2025-02-05] MEDS ORDERED: SODIUM CHLORIDE 0.9% 2,000 ML ONE (10:54)
[2025-02-05 13:55] LABS: GLUCOMETER DEV NAME(LOC) ICU.S7; GLUCOSE,POINT OF CARE 128 MG/DL (70-110)
[2025-02-05 18:10] LABS: GLUCOMETER DEV NAME(LOC) ICU.S7; GLUCOSE,POINT OF CARE 110 MG/DL (70-110)
[2025-02-05] MEDS: METOPROLOL TARTRATE 25 MG TABLET PO SCH (20:44)
[2025-02-06] VITALS (15 sets, daily range): BP systolic 100–139; BP diastolic 55–99; PULSE 65–86; RESP 18–19; TEMP 97.8–98.4; O2SAT 97–100
[2025-02-06 02:40] LABS: GLUCOMETER DEV NAME(LOC) 5N.1D; GLUCOSE,POINT OF CARE 86 MG/DL (70-110)
[2025-02-06 02:40] LABS: GLUCOMETER DEV NAME(LOC) 5N.1D; GLUCOSE,POINT OF CARE 87 MG/DL (70-110)
[2025-02-06 07:07] LABS: PLATELET COUNT (AUTO) 182 K/uL (150-450); RED BLOOD CELL COUNT(AUTO) 3.38 MIL/uL (4.50-5.90); RED CELL DISTRIBUTION WIDTH 18.5 % (11.5-14.5); WHITE BLOOD COUNT (AUTO) 7.2 K/uL (4.5-11.0)
[2025-02-06 07:16] LABS: CALCIUM, TOTAL 8.0 mg/dL (8.8-10.5); CREATININE 2.15 mg/dL (0.60-1.30); GLOMERULAR FILTR. RATE CALC 29.0 mL/min (>60); GLUCOSE,RANDOM 88.0 mg/dL (70-110); SODIUM SERUM 139.0 mmol/L (136-145); UREA NITROGEN, BLOOD 9.0 mg/dL (7-18)
[2025-02-06] MEDS ORDERED: SODIUM CHLORIDE 0.9% 1,000 ML ONE (08:46)
[2025-02-06 11:51] LABS: GLUCOMETER DEV NAME(LOC) 5N.1D; GLUCOSE,POINT OF CARE 78 MG/DL (70-110)
[2025-02-06 11:51] LABS: GLUCOMETER DEV NAME(LOC) 5N.1D; GLUCOSE,POINT OF CARE 111 MG/DL (70-110)
[2025-02-06] MEDS: VANCOMYCIN 1GM/WATER(PEG/NADA) 200 ML IV ONE (15:49)
[2025-02-06] MEDS: INSULIN LISPRO 100 UNITS/ML SQ PRN (17:59)
[2025-02-06 18:16] LABS: GLUCOMETER DEV NAME(LOC) 5N.1D; GLUCOSE,POINT OF CARE 181 MG/DL (70-110)
[2025-02-06 21:46] LABS: GLUCOMETER DEV NAME(LOC) 5N.1D; GLUCOSE,POINT OF CARE 141 MG/DL (70-110)
[2025-02-07] VITALS (14 sets, daily range): BP systolic 90–132; BP diastolic 55–74; PULSE 60–87; RESP 16–18; TEMP 97.9–98.2; O2SAT 99–100
[2025-02-07 06:59] LABS: CALCIUM, TOTAL 8.2 mg/dL (8.8-10.5); CREATININE 2.34 mg/dL (0.60-1.30); GLOMERULAR FILTR. RATE CALC 27.0 mL/min (>60); GLUCOSE,RANDOM 91.0 mg/dL (70-110); SODIUM SERUM 134.0 mmol/L (136-145); UREA NITROGEN, BLOOD 9.0 mg/dL (7-18)
[2025-02-07 07:02] LABS: PLATELET COUNT (AUTO) 162 K/uL (150-450); RED BLOOD CELL COUNT(AUTO) 3.89 MIL/uL (4.50-5.90); RED CELL DISTRIBUTION WIDTH 19.4 % (11.5-14.5); WHITE BLOOD COUNT (AUTO) 6.3 K/uL (4.5-11.0)
[2025-02-07 10:21] LABS: GLUCOMETER DEV NAME(LOC) 5S.1E; GLUCOSE,POINT OF CARE 86 MG/DL (70-110)
[2025-02-07 10:36] LABS: RBC MORPHOLOGY COMMENT ABNORMAL RBC MORPH
[2025-02-07 20:51] LABS: GLUCOMETER DEV NAME(LOC) 5S.1E; GLUCOSE,POINT OF CARE 86 MG/DL (70-110)
[2025-02-08 03:54] VITALS: BP 115/72; PULSE 68; RESP 17; TEMP 97.5; O2SAT 99
[2025-02-08 05:16] LABS: GLUCOMETER DEV NAME(LOC) 5S.1E; GLUCOSE,POINT OF CARE 99 MG/DL (70-110)
[2025-02-08 06:00] LABS: GLUCOMETER DEV NAME(LOC) 5N.1D; GLUCOSE,POINT OF CARE 138 MG/DL (70-110)
[2025-02-08 06:01] LABS: GLUCOMETER DEV NAME(LOC) 5N.1D; GLUCOSE,POINT OF CARE 149 MG/DL (70-110)
[2025-02-08 06:59] LABS: SODIUM SERUM 134.0 mmol/L (136-145)
[2025-02-08 07:00] LABS: CALCIUM, TOTAL 8.1 mg/dL (8.8-10.5); CREATININE 1.99 mg/dL (0.60-1.30); GLOMERULAR FILTR. RATE CALC 32.0 mL/min (>60); GLUCOSE,RANDOM 92.0 mg/dL (70-110); UREA NITROGEN, BLOOD 7.0 mg/dL (7-18)
[2025-02-08 07:12] LABS: PLATELET COUNT (AUTO) 153 K/uL (150-450); RED BLOOD CELL COUNT(AUTO) 3.51 MIL/uL (4.50-5.90); RED CELL DISTRIBUTION WIDTH 18.4 % (11.5-14.5); WHITE BLOOD COUNT (AUTO) 6.2 K/uL (4.5-11.0)
[2025-02-08 08:14] VITALS: BP 131/66; PULSE 65; RESP 18; TEMP 98.2; O2SAT 100
[2025-02-08 11:14] VITALS: BP 113/64; PULSE 69; RESP 17; TEMP 98.1; O2SAT 100
[2025-02-08] MEDS: POTASSIUM CHLORIDE 10% 40 MEQ/30 ML LIQUID UDCUP PO ONE (11:57)
[2025-02-08] MEDS ORDERED: HEPARIN SODIUM,PORCINE 1,000 UNITS/ML VIAL IVP ONE (12:05)
[2025-02-08 12:40] LABS: GLUCOMETER DEV NAME(LOC) 5N.1D; GLUCOSE,POINT OF CARE 172 MG/DL (70-110)
[2025-02-08 15:19] VITALS: BP 110/76; PULSE 68; RESP 18; TEMP 98; O2SAT 100
[2025-02-08] MEDS: MAGNESIUM OXIDE 400 MG TABLET PO ONE (16:17)
[2025-02-08] MEDS: VANCOMYCIN 750 MG/WATER(PEG) 150 ML IV ONE (17:54)
[2025-02-08 19:43] VITALS: BP 121/65; PULSE 70; RESP 17; TEMP 98.2; O2SAT 99
[2025-02-08 21:20] LABS: GLUCOMETER DEV NAME(LOC) 5N.1D; GLUCOSE,POINT OF CARE 143 MG/DL (70-110)
[2025-02-08 23:59] VITALS: BP 112/67; PULSE 70; RESP 15; TEMP 98.1; O2SAT 98
[2025-02-09] VITALS (13 sets, daily range): BP systolic 115–137; BP diastolic 61–95; PULSE 65–77; RESP 18–19; TEMP 98.1–98.5; O2SAT 97–99
[2025-02-09] MEDS ORDERED: SODIUM CHLORIDE 0.9% 1,000 ML ONE (06:14)
[2025-02-09 06:25] LABS: CALCIUM, TOTAL 8.1 mg/dL (8.8-10.5); CREATININE 2.77 mg/dL (0.60-1.30); GLOMERULAR FILTR. RATE CALC 22.0 mL/min (>60); GLUCOSE,RANDOM 98.0 mg/dL (70-110); SODIUM SERUM 133.0 mmol/L (136-145); UREA NITROGEN, BLOOD 15.0 mg/dL (7-18)
[2025-02-09 06:29] LABS: PLATELET COUNT (AUTO) 159 K/uL (150-450); RED BLOOD CELL COUNT(AUTO) 3.39 MIL/uL (4.50-5.90); RED CELL DISTRIBUTION WIDTH 17.9 % (11.5-14.5); WHITE BLOOD COUNT (AUTO) 6.2 K/uL (4.5-11.0)
[2025-02-09] MEDS: HEPARIN SODIUM,PORCINE 1,000 UNITS/ML VIAL IVCATH ONE ×2 (10:59)
[2025-02-09] MEDS: MAGNESIUM SULFATE 2 GM/WATER 50 ML IV ONE (14:39)
[2025-02-10 05:40] LABS: GLUCOMETER DEV NAME(LOC) 5N.1D; GLUCOSE,POINT OF CARE 115 MG/DL (70-110)
[2025-02-10 08:26] LABS: GLUCOMETER DEV NAME(LOC) 5S.1E; GLUCOSE,POINT OF CARE 132 MG/DL (70-110)
[2025-02-10 08:26] LABS: GLUCOMETER DEV NAME(LOC) 5S.1E; GLUCOSE,POINT OF CARE 100 MG/DL (70-110)
[2025-02-10 08:26] LABS: GLUCOMETER DEV NAME(LOC) 5S.1E; GLUCOSE,POINT OF CARE 106 MG/DL (70-110)
== END 2025-02-09 18:30 | DRG 871 ==
LOC: EMS 05:10 → EDH 07:05 → ICU 10:10 → 5S 02-05 18:11
PROVIDERS: ADMIT Internal Medicine; ATTEND Internal Medicine
PROC: 5A1D70Z Performance of Urinary Filtration, Intermittent, Less than 6 Hours Per Day (ICD-10-PCS; principal; 2025-02-01)
PROC: 5A09357 Assistance with Respiratory Ventilation, Less than 24 Consecutive Hours, Continuous Positive Airway Pressure (ICD-10-PCS; 2025-02-01)
PROC: 0BH17EZ Insertion of Endotracheal Airway into Trachea, Via Natural or Artificial Opening (ICD-10-PCS; 2025-02-01)
PROC: 5A1945Z Respiratory Ventilation, 24-96 Consecutive Hours (ICD-10-PCS; 2025-02-01)
PROC: 5A1D70Z Performance of Urinary Filtration, Intermittent, Less than 6 Hours Per Day (ICD-10-PCS; 2025-02-02)
PROC: 0W993ZZ Drainage of Right Pleural Cavity, Percutaneous Approach (ICD-10-PCS; 2025-02-03)
PROC: 5A1D70Z Performance of Urinary Filtration, Intermittent, Less than 6 Hours Per Day (ICD-10-PCS; 2025-02-03)
PROC: 5A1D70Z Performance of Urinary Filtration, Intermittent, Less than 6 Hours Per Day (ICD-10-PCS; 2025-02-05)
PROC: 5A1D70Z Performance of Urinary Filtration, Intermittent, Less than 6 Hours Per Day (ICD-10-PCS; 2025-02-06)
PROC: 5A1D70Z Performance of Urinary Filtration, Intermittent, Less than 6 Hours Per Day (ICD-10-PCS; 2025-02-07)
PROC: 5A1D70Z Performance of Urinary Filtration, Intermittent, Less than 6 Hours Per Day (ICD-10-PCS; 2025-02-09)
DX: A41.9 Sepsis, unspecified organism (principal); G92.8 Other toxic encephalopathy; J69.0 Pneumonitis due to inhalation of food and vomit; J96.01 Acute respiratory failure with hypoxia; N18.6 End stage renal disease; I21.A1 Myocardial infarction type 2; I50.43 Acute on chronic combined systolic (congestive) and diastolic (congestive) heart failure; R65.21 Severe sepsis with septic shock; J18.9 Pneumonia, unspecified organism; R53.2 Functional quadriplegia; N17.0 Acute kidney failure with tubular necrosis; I13.2 Hypertensive heart and chronic kidney disease with heart failure and with stage 5 chronic kidney disease, or end stage renal disease; N39.0 Urinary tract infection, site not specified; I47.20 Ventricular tachycardia, unspecified; Z99.2 Dependence on renal dialysis; B96.89 Other specified bacterial agents as the cause of diseases classified elsewhere; D63.1 Anemia in chronic kidney disease; E11.22 Type 2 diabetes mellitus with diabetic chronic kidney disease; E03.9 Hypothyroidism, unspecified; G93.89 Other specified disorders of brain; E87.1 Hypo-osmolality and hyponatremia; I25.10 Atherosclerotic heart disease of native coronary artery without angina pectoris; E11.51 Type 2 diabetes mellitus with diabetic peripheral angiopathy without gangrene; K21.9 Gastro-esophageal reflux disease without esophagitis; E83.42 Hypomagnesemia; E78.5 Hyperlipidemia, unspecified; Z85.46 Personal history of malignant neoplasm of prostate; Z90.79 Acquired absence of other genital organ(s); Z95.0 Presence of cardiac pacemaker; Z79.899 Other long term (current) drug therapy
CPT/HCPCS: 32555; 70450; 71045; 71250; 76942; 80048; 80053; 80202; 81001; 81002; 82465; 82805; 82945; 82962; 83605; 83615; 83735; 83880; 83986; 84100; 84132; 84145; 84157; 84484; 85025; 85379; 85610; 85730; 87015; 87040; 87070; 87075; 87081; 87086; 87101; 87205; 87206; 87340; 88108; 88305; 89051; 90935; 92526; 92610; 93005; 93306; 93970; 94002; 94003; 96361; 96365; 96372; 97163; 97530; 99291; J0330; J0692; J0696; J0885; J1644; J2470; J2543; J2704; J3010; J3475; J3490; J7030; J7050; J7060; 36415-L1; 36415-TC